=== PATIENT | male | born 1965 | race African-American/Black ===

== ENCOUNTER 2016-08-13 17:27 | Inpatient (IN) | payer BC, OTHER ==
--- NOTE | 2016-08-13 17:50 | HP ---
CIWA Score - CIWA Score Nausea/Vomitin Muscle Tremors: 3 Anxiety: 3 Agitation: 3 Paroxysmal Sweats: 2 Orientation: 0-Oriented Tacttile Disturbances: 2-Mild Itch/Numbness/Burn Auditory Disturbances: 2-Mild Harshness/Frighten Visual Disturbances: 2-Mild Sensitivity Headache: 2-Mild CIWA-Ar Total Score: 22 Admission ROS BHS - HPI Chief Complaint: i need help to stop drinking alcohol Allergies/Adverse Reactions: Allergies Allergy/AdvReac Type Severity Reaction Status Date / Time No Known Allergies Allergy Verified 02/14/16 14:47 History of Present Illness: this 51 years old black male seeking help to stop drinking alcohol,has several admissions in detox before, syncope htn longest period of sobriety 16 months Exam Limitations: No Limitations - Ebola screening Have you traveled outside of the country in the last 21 days: No Have you had contact with anyone from an Ebola affected area: No Do you have a fever: No - Review of Systems Constitutional: Malaise, Night Sweats, Changes in sleep, Weakness EENT: reports: Nose Congestion Respiratory: reports: No Symptoms reported Cardiac: reports: Palpitations GI: reports: Nausea, Vomiting, Abdominal cramping : reports: No Symptoms Reported Musculoskeletal: reports: Back Pain, Muscle Pain Integumentary: reports: Dryness Neuro: reports: Headache, Tremors Endocrine: reports: No Symptoms Reported Hematology: reports: No Symptoms Reported Psychiatric: reports: Depressed Patient History - Patient Medical History Hx Anemia: No Hx Asthma: No Hx Chronic Obstructive Pulmonary Disease (COPD): No Hx Cancer: No Hx Cardiac Disorders: No Hx Congestive Heart Failure: No Hx Hypertension: Yes (ON NORVASC) Hx Hypercholesterolemia: No Hx Pacemaker: No HX Cerebrovascular Accident: No Hx Seizures: No Hx Dementia: No Hx Diabetes: No Hx Gastrointestinal Disorders: Yes (acid reflux- TAKES PROTONIX) Hx Liver Disease: No Hx Genitourinary Disorders: No Hx Sexually Transmitted Disorders: No Hx Renal Disease (ESRD): No Hx Thyroid Disease: No Hx Human Immunodeficiency Virus (HIV): No (NEGATIVE HX 2014) Hx Hepatitis C: No Hx Depression: Yes (on meds) Hx Suicide Attempt: No (DENIES) Hx Bipolar Disorder: No Hx Schizophrenia: No Other Medical History: no suicidal,no homicidal - Patient Surgical History Past Surgical History: Yes Hx Neurologic Surgery: No Hx Cataract Extraction: No Hx Cardiac Surgery: No Hx Lung Surgery: No Hx Breast Surgery: No Hx Breast Biopsy: No Hx Abdominal Surgery: No Hx Appendectomy: No Hx Cholecystectomy: No Hx Genitourinary Surgery: No Hx Section: No Hx Orthopedic Surgery: Yes (BILATERAL HIP REPLACEMENT ) Anesthesia Reaction: No - PPD History Documented Results: Negative w/o proof Date: 04/18/15 Results: 0 mm PPD to be Administered?: Yes - Smoking Cessation Smoking history: Never smoked Hx Chewing Tobacco Use: No Family Disease History - Family Disease History Family Disease History: Diabetes: Sister, CA: Mother (PANCREATIC,), Other: Father (), Brother (ALCOHOLIC ,) Admission Physical Exam BHS - Vital Signs Vital Signs: Vital Signs Temperature 98.9 F 08/13/16 18:06 Pulse Rate 129 H 08/13/16 18:06 Respiratory Rate 20 08/13/16 18:06 Blood Pressure 158/102 08/13/16 18:06 O2 Sat by Pulse Oximetry (%) - Physical General Appearance: Yes: Moderate Distress, Alcohol on Breath, Tremorous, Irritable, Sweating, Anxious HEENTM: Yes: Hearing grossly Normal, Normal ENT Inspection, Pharynx Normal, Nasal Congestion, Other (old laceration of right tongue 3 weeks ago) Respiratory: Yes: Lungs Clear, Normal Breath Sounds, No Respiratory Distress Neck: Yes: Within Normal Limits, Supple, Trachea in good position Breast: Yes: Within Normal Limits Cardiology: Yes: Tachycardia Abdominal: Yes: Non Tender, Soft, Distended Genitourinary: Yes: Within Normal Limits Back: Yes: Normal Inspection, Muscle Spasm Musculoskeletal: Yes: Back pain, Muscle Pain Extremities: Yes: Tremors Neurological: Yes: equine manager II-XII NML intact, Fully Oriented, Alert, Motor Strength 5/5 Integumentary: Yes: Within Normal Limits, Dry Lymphatic: Yes: Within Normal Limits - Diagnostic (1) Alcohol dependence with uncomplicated withdrawal Current Visit: No Status: Acute (2) GERD (gastroesophageal reflux disease) Current Visit: No Status: Chronic Qualifiers: Esophagitis presence: without esophagitis Qualified Code(s): K21.9 - Gastro-esophageal reflux disease without esophagitis (3) HTN (hypertension) Current Visit: No Status: Chronic Qualifiers: Hypertension type: essential hypertension Qualified Code(s): I10 - Essential (primary) hypertension (4) MDD (major depressive disorder) Current Visit: No Status: Chronic Comment: Historical diagnosis. (5) Morbid obesity Current Visit: No Status: Chronic Qualifiers: Obesity type: due to excess calories Qualified Code(s): E66.01 - Morbid (severe) obesity due to excess calories (6) History of hip replacement Current Visit: Yes Status: Acute Cleared for Admission BHS - Detox or Rehab S Level of Care: Medically Managed Detox Regimen/Protocol: Librium BHS Breath Alcohol Content Breath Alcohol Content: 0.228 Vital Signs - Vital Signs Vital Signs Refused: No Temperature: 98.9 F Temperature Source: Oral Pulse Rate: 129 Respiratory Rate: 20 Blood Pressure: 158/102 BP Location: Left Arm Blood Pressure Position: Supine - Height Height: 5 ft 10 in - Weight Weight: 264 lb Body Mass Index (BMI): 37.8 Urine Drug Screen - Test Device Lot Number: [id number] Expiration Date: 03/15/18 - Control Is Test Valid: Yes - Results Drug Screen Negative: Yes
[2016-08-13 18:06] VITALS: BMI 37.8
[2016-08-13] MEDS ORDERED: MAGNESIUM HYDROX 2400MG/30ML ORAL SUSPENSION 30 ML CUP PO PRN (18:12)
[2016-08-13] MEDS ORDERED: chlordiazePOXIDE HCL 25 MG CAPSULE PO PRN (18:12)
[2016-08-13] MEDS ORDERED: IBUPROFEN 400 MG TABLET (FP) PO PRN (18:12)
[2016-08-13] MEDS ORDERED: guaiFENesin/D-METHORPHAN HB 10 ML UNIT-DOSE CUPS PO PRN (18:12)
[2016-08-13] MEDS ORDERED: ACETAMINOPHEN 325 MG TABLET (FP) PO PRN (18:12)
[2016-08-13] MEDS ORDERED: P-EPHED 60MG/TRIPROLIDI 2.5MG TABLET PO PRN (18:12)
[2016-08-13] MEDS ORDERED: MENTHOL/PHENOL 1 EACH UD MM PRN (18:12)
[2016-08-13] MEDS ORDERED: chlordiazePOXIDE HCL 25 MG CAPSULE PO ONE (18:12)
[2016-08-13] MEDS ORDERED: hydrOXYzine PAMOATE 50 MG CAPSULE (FP) PO PRN (18:12)
[2016-08-13] MEDS ORDERED: LOPERAMIDE HCL 2 MG CAPSULE PO PRN (18:12)
[2016-08-13] MEDS ORDERED: MAG HYDROX/AL HYDROX/SIMETH 30 ML UNIT-DOSE CUP PO PRN (18:12)
[2016-08-13] MEDS ORDERED: MAGNESIUM CITRATE 300 ML BOTTLE PO PRN (18:12)
[2016-08-13] MEDS ORDERED: chlordiazePOXIDE HCL 25 MG CAPSULE ONE (20:25)
[2016-08-13] MEDS: amLODIPine BESYLATE 5 MG TABLET (FP) PO SCH (20:26)
[2016-08-13] MEDS: chlordiazePOXIDE HCL 25 MG CAPSULE PO SCH (22:35)
[2016-08-13] MEDS: THIAMINE HCL 100 MG TABLET (FP) PO SCH (22:35)
[2016-08-13] MEDS: diphenhydrAMINE HCL 50 MG CAPSULE PO PRN (22:35)
[2016-08-14] MEDS: chlordiazePOXIDE HCL 25 MG CAPSULE PO SCH ×4 (05:35→22:34)
[2016-08-14 10:02] LABS: ALBUMIN 3.2 g/dl (3.4-5.0); ANION GAP 9 (8-16); CALCIUM 8.2 mg/dL (8.5-10.1); CO2 29 mmol/L (21-32); COCKROFT - GAULT 160.77; CREATININE 0.9 mg/dL (0.7-1.3); GLUCOSE,RANDOM 86 mg/dL (74-106); MCH 31.1 pg (25.7-33.7); MEAN CELL VOLUME 94.4 fl (80-96); MEAN PLT VOLUME 8.9 fl (7.5-11.1); PLATELET COUNT 121 K/MM3 (134-434); RDW 18.1 % (11.9-15.9); SGOT/AST 24 U/L (15-37); SGPT/ALT 18 U/L (12-78); WHITE BLOOD COUNT 4.8 K/mm3 (4.0-10.0)
[2016-08-14 10:04] LABS: ALK PHOS 82 U/L (45-117); BILIRUBIN,TOTAL 0.5 mg/dL (0.2-1.0); TOT PROT 7.1 g/dl (6.4-8.2)
--- NOTE | 2016-08-14 10:17 | EKG ---
Test Reason : Blood Pressure : / mmHG Vent. Rate : 119 BPM Atrial Rate : 119 BPM P-R Int : 160 ms QRS Dur : 086 ms QT Int : 338 ms P-R-T Axes : 065 -10 033 degrees QTc Int : 475 ms SINUS TACHYCARDIA ANTEROSEPTAL INFARCT , AGE UNDETERMINED ABNORMAL ECG NO PREVIOUS ECGS AVAILABLE Confirmed by LORY MONTEMAYOR MD ([id number]) on 08/14/2016 10:17:40 AM Referred By: Confirmed By:LORY MONTEMAYOR MD
[2016-08-14] MEDS: amLODIPine BESYLATE 5 MG TABLET (FP) PO SCH (10:26)
[2016-08-14] MEDS: PANTOPRAZOLE 40 MG TABLET (FP) PO SCH (10:26)
[2016-08-14] MEDS: PRENATAL VITAMINS W/ FOLIC ACID TABLET (FP) PO SCH (10:26)
--- NOTE | 2016-08-14 10:50 | CONSULT ---
[facility] Psychiatric Consult - Data Date of interview: 08/14/16 Admission source: [facility] Identifying data: Another admission to [facility] for this 51 y/o AA male seeking detox treatment on for alcohol dependence.Patient is ,a father of three,domiciled,a retiree from [employer] and supported on his pension benefits. Substance Abuse History: - Smoking Cessation. Smoking history: Never smoked. Hx Chewing Tobacco Use: No. Patient reports drinking one liter of rum daily.Last used rum on 08/13 16.Started using alcohol at age 16. Medical History: HTN,GERD and bilateral hip replacement (2008 + 2009). Psychiatric History: First psychiatric hospitalization (1998).Diagnosed with Major Depressive Disorder and treated at [facility] in [place], [place] with wellbutrin XL 150 mg/day at the time.Precipitant : marital difficulties and divorce.Known to Jenni Mojica (two admissions).No recent inpatient care.Mr Adams indicates that he gets psychiatric care via admissions to detox/rehab units.He admits to having observed sobriety since his discharge from [facility] in February 2016.Has been doing well on naltrexone and wellbutrin until he stopped medications a month ago (self-report).Patient continues to get medication refills through his primary care physician.No reported history of suicide attempts. Physical/Sexual Abuse/Trauma History: Patient denies. Additional Comment: Drug Screen is negative. Mental Status Exam - Mental Status Exam Alert and Oriented to: Time, Place, Person Cognitive Function: Good Patient Appearance: Well Groomed (obese) Mood: Hopeful, Euthymic Affect: Appropriate, Normal Range Patient Behavior: Fatigued, Appropriate, Cooperative Speech Pattern: Clear, Appropriate Voice Loudness: Normal Thought Process: Goal Oriented Thought Disorder: Not Present Hallucinations: Denies Suicidal Ideation: Denies Homicidal Ideation: Denies Insight/Judgement: Poor Sleep: Poorly, Difficulty falling asleep Appetite: Good Muscle strength/Tone: Normal Gait/Station: Normal Psychiatric Findings - Problem List ([place] 1, 2,3) (1) MDD (major depressive disorder), recurrent episode, moderate Current Visit: Yes Status: Chronic (2) Alcohol-induced mood disorder Current Visit: Yes Status: Chronic (3) Alcohol dependence with uncomplicated withdrawal Current Visit: Yes Status: Acute (4) History of hip replacement Current Visit: Yes Status: Chronic (5) GERD (gastroesophageal reflux disease) Current Visit: Yes Status: Chronic Qualifiers: Esophagitis presence: without esophagitis Qualified Code(s): K21.9 - Gastro-esophageal reflux disease without esophagitis (6) HTN (hypertension) Current Visit: Yes Status: Chronic Qualifiers: Hypertension type: essential hypertension Qualified Code(s): I10 - Essential (primary) hypertension (7) Morbid obesity Current Visit: Yes Status: Chronic Qualifiers: Obesity type: due to excess calories Qualified Code(s): E66.01 - Morbid (severe) obesity due to excess calories (8) Insomnia Current Visit: Yes Status: Acute - Initial Treatment Plan Initial Treatment Plan: Psychoeducation.Detoxification in progress.Medications : wellbutrin XL 150 mg po daily and benadryl 50 mg po hs prn for insomnia.Side effects/benefits discussed with patient.Made aware of risk of seizures ( bupropion).Patient reports good tolerability to wellbutrin and he insists on continuation of this medication through this course of care.Observation.
--- NOTE | 2016-08-14 12:21 | PN ---
S CIWA - CIWA Score Nausea/Vomitin-Mild Nausea/No Vomiting Muscle Tremors: 4-Moderate,w/Arms Extend Anxiety: 4-Mod. Anxious/Guarded Agitation: 4-Moderately Restless Paroxysmal Sweats: 3 Orientation: 0-Oriented Tacttile Disturbances: 1-Very Mild Itch/Numbness Auditory Disturbances: 0-None Visual Disturbances: 0-None Headache: 0-None Present CIWA-Ar Total Score: 17 BHS Progress Note (SOAP) Subjective: Anxiety,tremors,sweating,interrupted sleep,restless. Objective: 08/14/16 12:20 Vital Signs - 8 hr 08/14/16 08/14/16 06:48 09:24 Temperature 98.8 F 98.3 F Pulse Rate 109 H 113 H Respiratory 18 20 Rate Blood Pressure 158/110 151/106 Laboratory Tests 08/14/16 08/14/16 07:00 07:00 WBC 4.8 RBC 4.50 D Hgb 14.0 D Hct 42.4 MCV 94.4 MCHC 33.0 RDW 18.1 H D Plt Count 121 L MPV 8.9 Sodium 138 Potassium 4.0 Chloride 100 Carbon Dioxide 29 Anion Gap 9 BUN 17 D Creatinine 0.9 Creat Clearance w eGFR > 60 Random Glucose 86 D Calcium 8.2 L Total Bilirubin 0.5 D AST 24 D ALT 18 D Alkaline Phosphatase 82 Total Protein 7.1 Albumin 3.2 L labs noted Assessment: 08/14/16 12:20 Withdrawal sx. Plan: Continue detox
[2016-08-14 17:02] LABS: URINE APPEARANCE CLEAR; URINE BILIRUBIN NEGATIVE (NEGATIVE); URINE BLOOD NEGATIVE (NEGATIVE); URINE COLOR LTYELLOW; URINE GLUCOSE (UA) NEGATIVE (NEGATIVE); URINE KETONE NEGATIVE (NEGATIVE); URINE LEUK ESTERASE NEGATIVE (NEGATIVE); URINE NITRITE NEGATIVE (NEGATIVE); URINE PROTEIN NEGATIVE (NEGATIVE); URINE UROBILINOGEN NEGATIVE E.U./dl (0.2-1.0)
[2016-08-14] MEDS: THIAMINE HCL 100 MG TABLET (FP) PO SCH (22:33)
[2016-08-14] MEDS: diphenhydrAMINE HCL 50 MG CAPSULE PO PRN (22:34)
[2016-08-15] MEDS: chlordiazePOXIDE HCL 25 MG CAPSULE PO SCH ×3 (05:32→17:22)
[2016-08-15] MEDS: PANTOPRAZOLE 40 MG TABLET (FP) PO SCH (10:22)
[2016-08-15] MEDS: PRENATAL VITAMINS W/ FOLIC ACID TABLET (FP) PO SCH (10:22)
[2016-08-15] MEDS: amLODIPine BESYLATE 5 MG TABLET (FP) PO SCH (10:22)
--- NOTE | 2016-08-15 10:28 | PN ---
[facility] CIWA - CIWA Score Nausea/Vomitin-No Nausea/No Vomiting Muscle Tremors: 4-Moderate,w/Arms Extend Anxiety: 4-Mod. Anxious/Guarded Agitation: 4-Moderately Restless Paroxysmal Sweats: 1-Minimal Palms Moist Orientation: 0-Oriented Tacttile Disturbances: 3-Moderate Itch/Numb/Burn Auditory Disturbances: 0-None Visual Disturbances: 0-None Headache: 0-None Present CIWA-Ar Total Score: 16 BHS Progress Note (SOAP) Subjective: ANXIETY,SWEATS,INTERMITTENT SLEEP Objective: 08/15/16 10:28 Vital Signs Temperature 97.1 F L 08/15/16 09:48 Pulse Rate 98 H 08/15/16 09:48 Respiratory Rate 18 08/15/16 09:48 Blood Pressure 133/95 08/15/16 09:48 O2 Sat by Pulse Oximetry (%) Laboratory Last Values WBC 4.8 K/mm3 (4.0-10.0) 08/14/16 07:00 RBC 4.50 M/mm3 (4.00-5.60) D 08/14/16 07:00 Hgb 14.0 GM/dL (11.7-16.9) D 08/14/16 07:00 Hct 42.4 % (35.4-49) 08/14/16 07:00 MCV 94.4 fl (80-96) 08/14/16 07:00 MCHC 33.0 g/dl (32.0-35.9) 08/14/16 07:00 RDW 18.1 % (11.9-15.9) H D 08/14/16 07:00 Plt Count 121 K/MM3 (134-434) L 08/14/16 07:00 MPV 8.9 fl (7.5-11.1) 08/14/16 07:00 Sodium 138 mmol/L (136-145) 08/14/16 07:00 Potassium 4.0 mmol/L (3.5-5.1) 08/14/16 07:00 Chloride 100 mmol/L (98-107) 08/14/16 07:00 Carbon Dioxide 29 mmol/L (21-32) 08/14/16 07:00 Anion Gap 9 (8-16) 08/14/16 07:00 BUN 17 mg/dL (7-18) D 08/14/16 07:00 Creatinine 0.9 mg/dL (0.7-1.3) 08/14/16 07:00 Creat Clearance w eGFR > 60 (>60) 08/14/16 07:00 Random Glucose 86 mg/dL (74-106) D 08/14/16 07:00 Calcium 8.2 mg/dL (8.5-10.1) L 08/14/16 07:00 Total Bilirubin 0.5 mg/dL (0.2-1.0) D 08/14/16 07:00 AST 24 U/L (15-37) D 08/14/16 07:00 ALT 18 U/L (12-78) D 08/14/16 07:00 Alkaline Phosphatase 82 U/L (45-117) 08/14/16 07:00 Total Protein 7.1 g/dl (6.4-8.2) 08/14/16 07:00 Albumin 3.2 g/dl (3.4-5.0) L 08/14/16 07:00 Urine Color Ltyellow 08/14/16 13:20 Urine Appearance Clear 08/14/16 13:20 Urine pH 6.0 (5.0-8.0) 08/14/16 13:20 Ur Specific [place] 1.014 (1.001-1.035) 08/14/16 13:20 Urine Protein Negative (NEGATIVE) 08/14/16 13:20 Urine Glucose (UA) Negative (NEGATIVE) 08/14/16 13:20 Urine Ketones Negative (NEGATIVE) 08/14/16 13:20 Urine Blood Negative (NEGATIVE) 08/14/16 13:20 Urine Nitrite Negative (NEGATIVE) 08/14/16 13:20 Urine Bilirubin Negative (NEGATIVE) 08/14/16 13:20 Urine Urobilinogen Negative E.U./dl (0.2-1.0) 08/14/16 13:20 Ur Leukocyte Esterase Negative (NEGATIVE) 08/14/16 13:20 RPR Titer Nonreactive (NONREACTIVE) 08/14/16 07:00 Assessment: 08/15/16 10:28 WITHDRAWAL SX Plan: CONTINUE DETOX
--- NOTE | 2016-08-15 17:35 | PN ---
BHS Progress Note Note: received nurse informed patient refuses librium 25 mg, less withdrawal sx continue monitoring
--- NOTE | 2016-08-15 18:26 | DS ---
[facility] Detox Discharge Summary Admission Date: 08/13/16 Discharge Date: 08/15/16 - History Present History: Alcohol Dependence Additional Comments: patient insists to leave the unit, refuses to wait face to face with the provider, refuses e prescription, treatment team encourage the patient to consider aftercare as per counselor arranged Pertinent Past History: hypertension gerd - Physical Exam Results Vital Signs: Vital Signs Temperature 97 F L 08/15/16 13:19 Pulse Rate 99 H 08/15/16 13:19 Respiratory Rate 20 08/15/16 13:19 Blood Pressure 137/91 08/15/16 13:19 O2 Sat by Pulse Oximetry (%) Pertinent Admission Physical Exam Findings: withdrawal sx Laboratory Last Values WBC 4.8 K/mm3 (4.0-10.0) 08/14/16 07:00 RBC 4.50 M/mm3 (4.00-5.60) D 08/14/16 07:00 Hgb 14.0 GM/dL (11.7-16.9) D 08/14/16 07:00 Hct 42.4 % (35.4-49) 08/14/16 07:00 MCV 94.4 fl (80-96) 08/14/16 07:00 MCHC 33.0 g/dl (32.0-35.9) 08/14/16 07:00 RDW 18.1 % (11.9-15.9) H D 08/14/16 07:00 Plt Count 121 K/MM3 (134-434) L 08/14/16 07:00 MPV 8.9 fl (7.5-11.1) 08/14/16 07:00 Sodium 138 mmol/L (136-145) 08/14/16 07:00 Potassium 4.0 mmol/L (3.5-5.1) 08/14/16 07:00 Chloride 100 mmol/L (98-107) 08/14/16 07:00 Carbon Dioxide 29 mmol/L (21-32) 08/14/16 07:00 Anion Gap 9 (8-16) 08/14/16 07:00 BUN 17 mg/dL (7-18) D 08/14/16 07:00 Creatinine 0.9 mg/dL (0.7-1.3) 08/14/16 07:00 Creat Clearance w eGFR > 60 (>60) 08/14/16 07:00 Random Glucose 86 mg/dL (74-106) D 08/14/16 07:00 Calcium 8.2 mg/dL (8.5-10.1) L 08/14/16 07:00 Total Bilirubin 0.5 mg/dL (0.2-1.0) D 08/14/16 07:00 AST 24 U/L (15-37) D 08/14/16 07:00 ALT 18 U/L (12-78) D 08/14/16 07:00 Alkaline Phosphatase 82 U/L (45-117) 08/14/16 07:00 Total Protein 7.1 g/dl (6.4-8.2) 08/14/16 07:00 Albumin 3.2 g/dl (3.4-5.0) L 08/14/16 07:00 Urine Color Ltyellow 08/14/16 13:20 Urine Appearance Clear 08/14/16 13:20 Urine pH 6.0 (5.0-8.0) 08/14/16 13:20 Ur Specific [place] 1.014 (1.001-1.035) 08/14/16 13:20 Urine Protein Negative (NEGATIVE) 08/14/16 13:20 Urine Glucose (UA) Negative (NEGATIVE) 08/14/16 13:20 Urine Ketones Negative (NEGATIVE) 08/14/16 13:20 Urine Blood Negative (NEGATIVE) 08/14/16 13:20 Urine Nitrite Negative (NEGATIVE) 08/14/16 13:20 Urine Bilirubin Negative (NEGATIVE) 08/14/16 13:20 Urine Urobilinogen Negative E.U./dl (0.2-1.0) 08/14/16 13:20 Ur Leukocyte Esterase Negative (NEGATIVE) 08/14/16 13:20 RPR Titer Nonreactive (NONREACTIVE) 08/14/16 07:00 lab noted - Treatment Hospital Course: Detox Protocol Followed, Responded well - Medication Discharge Medications: Ambulatory Orders Bupropion HCl [Wellbutrin Xl -] 150 mg PO DAILY #30 tab.sr.24h 04/17/15 Amlodipine Besylate [Norvasc -] 2.5 mg PO DAILY 09/24/15 Pantoprazole Sodium [Protonix -] 40 mg PO DAILY 09/24/15 Hydroxyzine Pamoate [Vistaril -] 50 mg PO BID #60 capsule 02/15/16 Bupropion HCl [Wellbutrin Xl -] 150 mg PO DAILY #30 tab.sr.24h 08/14/16 - AMA Did Patient Leave Against Medical Advice: Yes
[2016-08-15 18:31] VITALS: BP 101/70; PULSE 97; TEMP 97.5
[2016-08-15] MEDS ORDERED: chlordiazePOXIDE 5 MG CAPSULE PO SCH (23:00)
[2016-08-16] MEDS ORDERED: chlordiazePOXIDE HCL 10 MG CAPSULE PO SCH (23:00)
== END 2016-08-15 18:37 | disposition left against medical advice (07) | DRG 894 ==
LOC: YASAS 17:27 → Y3N 17:44
PROVIDERS: ADMIT Internal Medicine; ATTEND Internal Medicine
PROC: HZ2ZZZZ Detoxification Services for Substance Abuse Treatment (ICD-10-PCS; principal; 2016-08-13)
DX: F10.230 Alcohol dependence with withdrawal, uncomplicated (principal); F33.1 Major depressive disorder, recurrent, moderate; Z68.42 Body mass index [BMI] 45.0-49.9, adult; F10.24 Alcohol dependence with alcohol-induced mood disorder; I10 Essential (primary) hypertension; K21.9 Gastro-esophageal reflux disease without esophagitis; E66.01 Morbid (severe) obesity due to excess calories; Z96.643 Presence of artificial hip joint, bilateral
CPT/HCPCS: 36415; 80053; 81003; 85027; 86593; 93005; 93010